=== PATIENT | male | born 1955 | race Caucasian/White ===

== ENCOUNTER 2020-04-24 08:34 | Outpatient (CLI) | payer MEDICARE, MEDICAID ==
--- NOTE | 2020-04-24 11:43 | ULT ---
ULTRASOUND SCROTUM AND TESTICLES DOPPLER DUPLEX: DATE: 04/24/2020 HISTORY: 64-year-old male with enlarged scrotum TECHNIQUE: Grayscale evaluation of intrascrotal contents. Color flow Doppler and spectral waveform analysis of t he testicles. FINDINGS: Right side: Within the right scrotal sac, there is a large, approximately 9 x 6.5 x 6.5 cm multiloculated focal f luid collection located cephalad to the right testicle, inferiorly displacing and distorting the right testicle. This complex fluid collection consists of numerous septations, dividing the collectio n into a very large number of compartments, with different echogenicities each. They have varying degrees of intermediate echogenicity, while some are hypoechoic and some are moderately hyperechoic. Right epididymis is not visualized. The extrinsically compressed and deformed right testicle measures approximately 3.3 x 3.5 x 1.7 cm. I t has homogeneous, normal echogenicity. Blood flow is demonstrated in the right testicle by Doppler. Left side: Left epididymis measures 1 x 0.7 x 0.6 cm. Left testicle measures 4.3 x 3.0 x 2.0 cm. There is an approximately 2.6 x 0.7 x 2.6 cm region of slightly decreased echogenicity located in a p eripheral, subcapsular location of the left testicular parenchyma, with geographic appearance and irregular margins. IMPRESSION: 1) large, 9 cm loculated right intrascrotal fluid collection with large number of septations and larg e number of chambers, containing fluid of varying echogenicities. Etiology uncertain. Possibilities include hematoma and abscess. 2) geographic region of abnormal echogenicity in the left testicle. Etiology uncertain. Possibilities include testicular cancer and scar.
== END 2020-04-24 08:35 | disposition home or self-care (01) ==
LOC: BICULT 08:34
PROVIDERS: ATTEND Family Medicine
DX: N50.89 Other specified disorders of the male genital organs (principal); R93.89 Abnormal findings on diagnostic imaging of other specified body structures
CPT/HCPCS: 76870; 93976